=== PATIENT | female | born 1955 | race African-American/Black ===

== ENCOUNTER 2022-12-15 15:54 | Inpatient (IN) | payer OTHER ==
[2022-12-15 17:01] VITALS: BMI 24.6
[2022-12-15] MEDS ORDERED: ACETAMINOPHEN 1000 MG/100 ML BAG IVPB ONE (17:47)
[2022-12-15 18:00] LABS: EOS % 3.2 % (0-4.5); HEMATOCRIT 39.1 % (32.4-45.2); HEMOGLOBIN 13.2 GM/dL (10.7-15.3); MCHC 33.7 g/dl (32.0-36.0); MEAN PLT VOLUME 8.6 fl (7.5-11.1); MONO % 6.6 % (3.8-10.2); NEUT % 62.2 % (42.8-82.8); PLATELET COUNT 389 10^3/uL (134-434); RBC 4.25 M/mm3 (3.60-5.2); RDW 14.7 % (11.6-15.6); WHITE BLOOD COUNT 9.7 K/mm3 (4.0-10.0)
[2022-12-15 18:28] LABS: CALCIUM 9.4 mg/dL (8.5-10.1)
[2022-12-15 18:29] LABS: ALBUMIN 3.5 g/dl (3.4-5.0); BLOOD UREA NITROGEN 11.4 mg/dL (7-18)
[2022-12-15 18:32] LABS: CREATININE 0.8 mg/dL (0.55-1.3)
[2022-12-15] MEDS ORDERED: ACETAMINOPHEN INJECTION 100 ML IVPB ONE (18:32)
[2022-12-15 18:33] LABS: BILIRUBIN,TOTAL 0.4 mg/dL (0.2-1); TOT PROT 7.2 g/dl (6.4-8.2)
[2022-12-15] MEDS ORDERED: morphine CARPU-JECT 4 MG/1 ML DISP.SYRIN IVPUSH ONE (21:17)
[2022-12-15] MEDS ORDERED: morphine SULFATE 4 MG/ML VIAL ONE (21:19)
[2022-12-16] MEDS ORDERED: QUEtiapine FUMARATE 300 MG TABLET PO ONE (01:22)
[2022-12-16] MEDS ORDERED: QUEtiapine FUMARATE 100 MG TABLET (FP) ONE (01:31)
[2022-12-16] MEDS ORDERED: methaDONE HCL 10 MG TABLET PO ONE ×2 (04:15→15:00)
[2022-12-16] MEDS ORDERED: methaDONE HCL 10 MG TABLET (FOR DETOX USE ONLY) PO ONE (04:15)
[2022-12-16] MEDS ORDERED: methaDONE HCL 10 MG TABLET ONE (04:32)
[2022-12-16 06:59] LABS: CALCIUM 8.9 mg/dL (8.5-10.1)
[2022-12-16 07:00] LABS: BLOOD UREA NITROGEN 9.5 mg/dL (7-18); MAGNESIUM 1.3 mg/dL (1.8-2.4)
[2022-12-16 07:03] LABS: CREATININE 0.6 mg/dL (0.55-1.3); PHOSPHOROUS 2.9 mg/dL (2.5-4.9)
[2022-12-16 07:04] LABS: BILIRUBIN,TOTAL 0.6 mg/dL (0.2-1); TOT PROT 6.2 g/dl (6.4-8.2)
[2022-12-16] MEDS: KCL 10 MEQ IVPB 10 MEQ/100 ML INFUS.BAG IVPB SCH ×4 (08:14→11:06)
[2022-12-16] MEDS ORDERED: MAGNESIUM 2GM/50ML STERILE WATER IVPB IVPB ONE (08:15)
[2022-12-16 08:23] LABS: HEMOGLOBIN 13.2 GM/dL (10.7-15.3); MCH 32.5 pg (25.7-33.7); MCHC 34.8 g/dl (32.0-36.0); MEAN CELL VOLUME 93.4 fl (80-96); MEAN PLT VOLUME 9.3 fl (7.5-11.1); PLATELET COUNT 376 10^3/uL (134-434); RBC 4.07 M/mm3 (3.60-5.2); RDW 14.4 % (11.6-15.6); WHITE BLOOD COUNT 9.5 K/mm3 (4.0-10.0)
[2022-12-16] MEDS ORDERED: NAPH,MB-DB/K PH,MBDB POWDER PACKET PO SCH (10:00)
[2022-12-16] MEDS ORDERED: ENOXAPARIN NA (PORCINE) 40 MG/0.4 ML DISP.SYRIN SQ SCH (10:00)
[2022-12-16] MEDS ORDERED: POTASSIUM CHLORIDE ORAL LIQUID 20 MEQ/15 ML PO ONE (11:45)
[2022-12-16] MEDS: HYDROCHLOROTHIAZIDE 12.5 MG CAPSULE (FP) PO SCH (12:32)
[2022-12-16] MEDS: amLODIPine BESYLATE 5 MG TABLET (FP) PO SCH (12:32)
[2022-12-16] MEDS ORDERED: DOCUSATE SODIUM 100 MG CAPSULE (FP) PO PRN (14:06)
[2022-12-16] MEDS ORDERED: ACETAMINOPHEN 1000 MG/100 ML BAG IVPB ONE (14:13)
[2022-12-16] MEDS ORDERED: MELATONIN 5 MG TABLETS PO PRN (14:13)
[2022-12-16] MEDS: methaDONE HCL 10 MG TABLET PO ONE ×2 (14:43→14:55)
[2022-12-16] MEDS ORDERED: POLYETHYLENE GLYCOL (HEALTHYLAX) 3350 17 GM PACKET PO PRN (16:27)
[2022-12-16] MEDS ORDERED: NICOTINE 10 MG CARTRIDGE (INHALER) IH PRN (16:27)
[2022-12-16] MEDS ORDERED: LOPERAMIDE HCL 2 MG CAPSULE PO PRN (16:27)
[2022-12-16] MEDS ORDERED: ACETAMINOPHEN 325 MG TABLET (FP) PO PRN ×3 (16:27→16:34)
[2022-12-16] MEDS ORDERED: IBUPROFEN 400 MG TABLET (FP) PO PRN (16:27)
[2022-12-16] MEDS ORDERED: BISMUTH SUBSALICYLATE 524 MG/30 ML PO PRN (16:27)
[2022-12-16] MEDS ORDERED: BENZOCAINE/MENTHOL (CHLORASEPTIC ) LOZENGE MM PRN (16:27)
[2022-12-16] MEDS ORDERED: MAG HYDROX/AL HYDROX/SIMETH 30 ML UNIT-DOSE CUP PO PRN (16:27)
[2022-12-16] MEDS ORDERED: hydrOXYzine PAMOATE 25 MG CAPSULE (FP) PO PRN (16:27)
[2022-12-16] MEDS ORDERED: NALOXONE HCL (KLOXXADO) 8 MG SPRAY NS PRN (16:27)
[2022-12-16] MEDS ORDERED: MAGNESIUM HYDROX 2400MG/30ML ORAL SUSPENSION 30 ML CUP PO PRN (16:27)
[2022-12-16] MEDS ORDERED: ONDANSETRON *ODT* 4 MG TABLET SL PRN (16:27)
[2022-12-16] MEDS ORDERED: IBUPROFEN 600 MG TABLET (FP) PO PRN (16:27)
[2022-12-16] MEDS ORDERED: cloNIDine HCL 0.1 MG TABLET PO PRN (16:30)
[2022-12-16] MEDS: PRENATAL VITAMINS W/ FOLIC ACID TABLET (FP) PO SCH (17:22)
[2022-12-16] MEDS: MELATONIN 5 MG TABLETS PO SCH (21:24)
[2022-12-16] MEDS: QUEtiapine FUMARATE 100 MG TABLET (FP) PO SCH (21:25)
[2022-12-16] MEDS: THIAMINE HCL 100 MG TABLET (FP) PO SCH (21:25)
[2022-12-16] MEDS: ATORVASTATIN CA 20 MG TABLET (FP) PO SCH (21:25)
[2022-12-16] MEDS: APIXABAN 5 MG TABLET PO SCH (21:26)
[2022-12-17] MEDS: ACETAMINOPHEN 325 MG TABLET (FP) PO PRN (06:08)
[2022-12-17 07:43] LABS: BASO % 0.6 % (0-2.0); EOS % 2.4 % (0-4.5); HEMATOCRIT 42.2 % (32.4-45.2); HEMOGLOBIN 14.2 GM/dL (10.7-15.3); LYMPH % 19.4 % (8-40); MCH 30.8 pg (25.7-33.7); MCHC 33.5 g/dl (32.0-36.0); MEAN CELL VOLUME 91.8 fl (80-96); MEAN PLT VOLUME 9.3 fl (7.5-11.1); NEUT % 72.6 % (42.8-82.8); PLATELET COUNT 378 10^3/uL (134-434); RDW 14.2 % (11.6-15.6); WHITE BLOOD COUNT 8.9 K/mm3 (4.0-10.0)
[2022-12-17 08:04] LABS: ALBUMIN 3.3 g/dl (3.4-5.0); BLOOD UREA NITROGEN 9.6 mg/dL (7-18); PHOSPHOROUS 3.3 mg/dL (2.5-4.9)
[2022-12-17 08:05] LABS: CALCIUM 9.4 mg/dL (8.5-10.1); TOT PROT 6.7 g/dl (6.4-8.2)
[2022-12-17 08:06] LABS: BILIRUBIN,TOTAL 0.6 mg/dL (0.2-1); MAGNESIUM 1.7 mg/dL (1.8-2.4)
[2022-12-17 08:07] LABS: CREATININE 0.6 mg/dL (0.55-1.3)
[2022-12-17] MEDS ORDERED: MAGNESIUM 1GM/D5W 100ML - 100 ML IVPB IVPB ONE (08:15)
[2022-12-17] MEDS: HYDROCHLOROTHIAZIDE 12.5 MG CAPSULE (FP) PO SCH (09:24)
[2022-12-17] MEDS: PRENATAL VITAMINS W/ FOLIC ACID TABLET (FP) PO SCH (09:25)
[2022-12-17] MEDS: APIXABAN 5 MG TABLET PO SCH ×2 (09:25→21:27)
[2022-12-17] MEDS: amLODIPine BESYLATE 5 MG TABLET (FP) PO SCH (09:25)
[2022-12-17] MEDS: DICYCLOMINE HCL 10 MG CAPSULE PO PRN (19:52)
[2022-12-17] MEDS: ATORVASTATIN CA 20 MG TABLET (FP) PO SCH (21:27)
[2022-12-17] MEDS: THIAMINE HCL 100 MG TABLET (FP) PO SCH (21:27)
[2022-12-17] MEDS: QUEtiapine FUMARATE 100 MG TABLET (FP) PO SCH (21:27)
[2022-12-17] MEDS: MELATONIN 5 MG TABLETS PO SCH (21:27)
[2022-12-18 08:50] LABS: HEMATOCRIT 41.2 % (32.4-45.2); HEMOGLOBIN 13.9 GM/dL (10.7-15.3); MCH 31.2 pg (25.7-33.7); MCHC 33.7 g/dl (32.0-36.0); MEAN CELL VOLUME 92.7 fl (80-96); MEAN PLT VOLUME 8.8 fl (7.5-11.1); PLATELET COUNT 392 10^3/uL (134-434); RBC 4.45 M/mm3 (3.60-5.2); RDW 14.4 % (11.6-15.6); WHITE BLOOD COUNT 8.2 K/mm3 (4.0-10.0)
[2022-12-18 09:14] LABS: BLOOD UREA NITROGEN 8.5 mg/dL (7-18); CALCIUM 9.4 mg/dL (8.5-10.1); MAGNESIUM 1.6 mg/dL (1.8-2.4)
[2022-12-18 09:15] LABS: ALBUMIN 3.3 g/dl (3.4-5.0)
[2022-12-18 09:17] LABS: CREATININE 0.7 mg/dL (0.55-1.3); PHOSPHOROUS 3.6 mg/dL (2.5-4.9)
[2022-12-18 09:19] LABS: BILIRUBIN,TOTAL 0.6 mg/dL (0.2-1); TOT PROT 6.8 g/dl (6.4-8.2)
[2022-12-18] MEDS: PRENATAL VITAMINS W/ FOLIC ACID TABLET (FP) PO SCH (09:58)
[2022-12-18] MEDS: amLODIPine BESYLATE 5 MG TABLET (FP) PO SCH (09:58)
[2022-12-18] MEDS: DICYCLOMINE HCL 10 MG CAPSULE PO PRN (09:58)
[2022-12-18] MEDS: HYDROCHLOROTHIAZIDE 12.5 MG CAPSULE (FP) PO SCH (09:58)
[2022-12-18] MEDS ORDERED: methaDONE HCL 10 MG TABLET PO ONE (10:00)
[2022-12-18] MEDS: ACETAMINOPHEN 325 MG TABLET (FP) PO PRN (12:30)
[2022-12-18] MEDS: ATORVASTATIN CA 20 MG TABLET (FP) PO SCH (21:46)
[2022-12-18] MEDS: QUEtiapine FUMARATE 100 MG TABLET (FP) PO SCH (21:46)
[2022-12-18] MEDS: MELATONIN 5 MG TABLETS PO SCH (21:46)
[2022-12-18] MEDS: THIAMINE HCL 100 MG TABLET (FP) PO SCH (21:46)
[2022-12-19] MEDS: HYDROCHLOROTHIAZIDE 12.5 MG CAPSULE (FP) PO SCH (09:13)
[2022-12-19] MEDS: PRENATAL VITAMINS W/ FOLIC ACID TABLET (FP) PO SCH (09:13)
[2022-12-19] MEDS: amLODIPine BESYLATE 5 MG TABLET (FP) PO SCH (09:13)
[2022-12-19] MEDS ORDERED: BISACODYL 5 MG TABLET.DR (FP) PO ONE (09:45)
[2022-12-19] MEDS: QUEtiapine FUMARATE 100 MG TABLET (FP) PO SCH (22:24)
[2022-12-19] MEDS: MELATONIN 5 MG TABLETS PO SCH (22:24)
[2022-12-19] MEDS: THIAMINE HCL 100 MG TABLET (FP) PO SCH (22:24)
[2022-12-19] MEDS: ATORVASTATIN CA 20 MG TABLET (FP) PO SCH (22:24)
[2022-12-20 06:23] VITALS: TEMP 97.8
[2022-12-20 07:02] VITALS: BP 118/70; PULSE 82; RESP 20
[2022-12-20] MEDS: amLODIPine BESYLATE 5 MG TABLET (FP) PO SCH (09:58)
[2022-12-20] MEDS: HYDROCHLOROTHIAZIDE 12.5 MG CAPSULE (FP) PO SCH (09:58)
[2022-12-20] MEDS: PRENATAL VITAMINS W/ FOLIC ACID TABLET (FP) PO SCH (09:59)
[2022-12-20] MEDS ORDERED: methaDONE HCL 10 MG TABLET PO ONE (10:00)
== END 2022-12-20 14:33 | disposition home or self-care (01) | DRG 552 ==
LOC: JER 15:54 → JERBED 12-16 00:25 → INTOOBSV 12-16 00:25 → J4S 12-16 06:23 → J5S 12-17 13:35 → J8W 12-18 14:25 → J5S 12-18 14:28 → OBSVTOIN 12-19 15:04 → J8W 12-19 23:23
PROVIDERS: ADMIT Internal Medicine; ATTEND Nurse Practitioner Family
DX: M48.061 Spinal stenosis, lumbar region without neurogenic claudication (principal); G83.4 Cauda equina syndrome; R45.851 Suicidal ideations; I48.91 Unspecified atrial fibrillation; I10 Essential (primary) hypertension; E11.9 Type 2 diabetes mellitus without complications; R20.2 Paresthesia of skin; F11.90 Opioid use, unspecified, uncomplicated; E78.5 Hyperlipidemia, unspecified; F31.9 Bipolar disorder, unspecified
CPT/HCPCS: 0241U-QW; 36415; 70450-TC; 71045-TC-FY; 72125-TC; 72128-TC; 72131-TC; 72158-TC; 72170-TC-FY; 74176-TC; 76705-TC; 80053; 82607; 82746; 82962; 83036; 83605; 83735; 84100; 84484; 85025; 85027; 93005; 93010; 97116-GP; 97161-GP; 99285-25; G0378